=== PATIENT | male | born 1970 | race Caucasian/White ===

== ENCOUNTER 2019-07-07 19:17 | Inpatient (IN) | payer BC ==
[~2019-07-07] VITALS: Ht 165.1 cm; Wt 100.0 kg
--- NOTE | 2019-07-07 19:46 | NUR ---
PATIENT WAS BROUGHT IN BY EMS WITH REPORT OF FEELING "SICK" FOR 1 WEEK NAUSEA,VOMITING,DIARRHEA, TODAY HAS DIZZINESS. EKG DONE AT WORK FACILITY SHOWED AFIB/RVR. PATIENT SEEN A/O DENIES ANY PAIN. SALINE LOCK IN PLACE WITH NS @TKO. PATIENT IS WAIITNG FOR MD EVALUATION.
--- NOTE | 2019-07-07 20:52 | NUR ---
PATIENT MEDICATED WITH BABY ASA, FLUID BOLUS IS INFUSING.
[2019-07-07 20:56] LABS: BASOPHIL % 0.2 % (0-2); PLATELET COUNT 201 x10^3mcL (130-400); RED CELL DISTRIBUTION WIDTH 13.6 % (11.5-14.5)
[2019-07-07 21:22] LABS: CARBON DIOXIDE 29.3 mmol/L (21-32); CHLORIDE SERUM 105 mmol/L (98-107); GLUCOSE SERUM 102 mg/dL (74-106); POTASSIUM SERUM 3.8 mmol/L (3.5-5.1); SODIUM SERUM 141 mmol/L (136-145)
[2019-07-07 21:23] LABS: CALCIUM 8.5 mg/dL (8.5-10.1); CREATININE SERUM 0.9 mg/dL (0.7-1.3); GFR1 > 60 mL/min
[2019-07-07 21:30] LABS: ALBUMIN 3.3 g/dL (3.4-5.0); ALKALINE PHOSPHATASE 57 U/L (46-116); ALT/SGPT 29 U/L (16-63); AST/SGOT 25 U/L (15-37); BILIRUBIN TOTAL 0.7 mg/dL (0.20-1.00); TOTAL PROTEIN, SERUM 7.2 g/dL (6.4-8.2)
--- NOTE | 2019-07-07 22:08 | NUR ---
REPORT WAS GIVEN TO PRICE. PATIENT TRANSPORTED TO ROOM 239.
--- NOTE | 2019-07-07 22:09 | NUR ---
RECEIVED FROM ED,PUT IN ROOM 238 B AND MADE COMFORTABLE.TELE 18,AFIB.JAMAAL ADMITTING PATIENT,KAE DE LA CRUZ.
[2019-07-07 22:13] LABS: CHOLESTEROL/HDL RATIO 7.8
[2019-07-07 22:18] LABS: T3 TOTAL 0.88 ng/mL
[2019-07-07 22:25] VITALS: BP 143/97
--- NOTE | 2019-07-07 22:35 | NUR ---
RECEIVED PT FROM ER, PT ADMIT FOR A.FIB. PT IS A/O X4, VERBAL RESPONSIVE. LUNG SOUND CLEAR BILATERAL, NO COUGH, NO SOB, PT IS 0N TELE 18, A.FIB. DENY ANY CHEST PAIN OR DISCOMFORT, BOWEL SOUND PRESENT ALL 4 QUADRANTS, NO DISTENTION. NO TENDER. PEDAL PULSE PRESENT BOTH FEET, NO EDEMA. IV AT LEFT AC, NO LEAKING, ON INFILTRATION. ALL ADLS ASSIST, ALL NEED MET, CALL LIGHT IN REACH, WILL CONTINUE TO MONITOR.
--- NOTE | 2019-07-07 22:40 | NUR ---
FLAVIO GRAHAM CALCULATED AND SIGNED PAPERWORKS BY HENRRY AND ME,BUT DR KEY TO WAIT,DISCUSSING WITH DR FOY.WAITING.
[2019-07-07 22:54] LABS: FREE T4 0.97 ng/dL (0.76-1.46); FREE THYROXINE INDEX 1.8 ug/dL (1.4-4.5); T4(THYROXINE) 5.6 ug/dL (4.7-13.3)
--- NOTE | 2019-07-07 23:02 | NUR ---
PATIENT HEPARIN DRIP NEVER STARTED,GIVEN SQ INSTEAD,PATIENT ALERT AND ORIENTED.EXPLAINED TO HIM THE RATIONALE.
--- NOTE | 2019-07-07 23:56 | NUR ---
CALL LIGHT IN REACH.
[2019-07-08 03:10] LABS: microscopic required? NO
[2019-07-08 03:24] LABS: urine erythrocyte NEGATIVE (NEGATIVE)
[2019-07-08 04:14] LABS: AMPHETAMINE QUAL UR NONE DETECTED (See below)
--- NOTE | 2019-07-08 04:40 | NUR ---
UA SENT UDS,CAME BACK NEGATIVE.URINAL AT BEDSIDE.
[2019-07-08 06:03] VITALS: BP 100/64
[2019-07-08 06:31] LABS: BASOPHIL % 0.3 % (0-2); PLATELET COUNT 197 x10^3mcL (130-400); RED CELL DISTRIBUTION WIDTH 13.7 % (11.5-14.5)
--- NOTE | 2019-07-08 06:38 | NUR ---
WILL ENDORSE TO NEXT SHIFT,Jaylan TRENT.
--- NOTE | 2019-07-08 07:09 | NUR ---
RECEIVED PT FROM [employer] NURSE. PT RESTING IN BED, AOX4, RESP E/U ON RA. ULTRASOUND IN PROGRESS AT BEDSIDE. NO ACUTE DISTRESS NOTED AT THIS TIME. ON TELE 18 SHOWING A-FIB, HR: 87. IV SALINE LOCK TO LAC W/ NO ERYTHEMA OR EDEMA. BED IN LOWEST POSTIION AND CALL LIGHT WITHIN REACH. WILL CONTINUE TO MONITOR.
[2019-07-08 07:24] LABS: SODIUM SERUM 142 mmol/L (136-145)
[2019-07-08 07:25] LABS: CHLORIDE SERUM 107 mmol/L (98-107); GFR1 > 60 mL/min; GLUCOSE SERUM 113 mg/dL (74-106); MAGNESIUM 2.2 mg/dL (1.8-2.4); PHOSPHOROUS 4.2 mg/dL (2.5-4.9); POTASSIUM SERUM 3.9 mmol/L (3.5-5.1)
[2019-07-08 07:58] VITALS: BP 122/79
[2019-07-08 12:03] VITALS: BP 120/77
--- NOTE | 2019-07-08 12:06 | NUR ---
PT IN BED WATCHING TV, AOX4, RESP E/U ON RA. DENIES CHEST PAIN/PRESSURE OT SOB AT THIS TIME. NO ACUTE DISTRESS NOTED. BED IN LOWEST POSITION AND CALL LIGHT WITHIN REACH. WILL CONTINUE TO MONITOR.
[2019-07-08 16:29] VITALS: BP 103/78
[2019-07-08] MEDS ORDERED: XARELTO20 M1 PO (16:54)
[2019-07-08] MEDS ORDERED: LIPI10 PO (16:55)
[2019-07-08] MEDS ORDERED: LOP50 PO (16:55)
--- NOTE | 2019-07-08 17:32 | NUR ---
PT DISCHARGED. REVIEWED DISCHARGE PACKET, FOLLOW UP INSTRUCTIONS AND NEW RX MEDS W/ PT. PT AOX4, RESP E/U ON RA, VS STABLE, DENIES CHEST PAIN OR DIZZINESS AT THIS TIME. IV TO LAC REMOVED, CATH INTACT, GAUZE DRESSING APPLIED. PT AMBULATORY TO [facility], ESCORTED BY DOROTHY JOSHI W/ NO ACUTE INCIDENCE.
== END 2019-07-08 17:32 | disposition home or self-care (01) | DRG 309 ==
LOC: ED 19:17 → DU 21:24 → MU 07-08 15:45
PROVIDERS: Emergency Medicine; ADMIT Student in an Organized Health Care Education/Training Program
DX: I48.91 Unspecified atrial fibrillation (principal); E44.0 Moderate protein-calorie malnutrition; Z90.49 Acquired absence of other specified parts of digestive tract; F17.210 Nicotine dependence, cigarettes, uncomplicated; G90.8 Other disorders of autonomic nervous system; I10 Essential (primary) hypertension; Z23 Encounter for immunization; Z68.39 Body mass index [BMI] 39.0-39.9, adult
CPT/HCPCS: 84439; 90658; 97116-GP; G0378; J1644; J7030; Q0092